=== PATIENT | male | born 1940 | race Caucasian/White ===

== ENCOUNTER 2022-07-02 06:13 | Day surgery (SDC) | payer OTHER ==
[2022-06-27 12:43] VITALS: BMI 24.7
[2022-07-02] MEDS ORDERED: ERYTHROMYCIN 0.5% OPHTHALMIC OINTMENT 3.5 GM TUBE ONE (07:06)
[2022-07-02] MEDS ORDERED: POVIDONE-IODINE 5% OPHTHALMIC PREP 30 ML SOLUTION ONE (07:06)
[2022-07-02] MEDS ORDERED: TETRACAINE 0.5% OPHTH SOLN 2 ML BOTTLE ONE (07:06)
[2022-07-02] MEDS ORDERED: BACITRACIN ZINC 15 GM TUBE TOPICAL OINTMENT ONE (07:06)
[2022-07-02] MEDS ORDERED: OXYMETAZOLINE 0.05% NASAL SOLUTION 15 ML BOTTLE NS ONE (07:06)
[2022-07-02] MEDS ORDERED: LIDOCAINE 1%-EPI 1:100,000 30 ML MDV IJ ONE (07:06)
[2022-07-02] MEDS ORDERED: BUPIVACAINE HCL 50 ML ONE (07:06)
[2022-07-02] MEDS ORDERED: THROMBIN (BOVINE) 5,000 UNIT VIAL TP ONE (07:07)
[2022-07-02] MEDS ORDERED: ceFAZolin SODIUM 1 GM VIAL ONE ×2 (07:11→07:14)
[2022-07-02] MEDS ORDERED: PROPOFOL 20 ML ONE (07:14)
[2022-07-02] MEDS ORDERED: MIDAZOLAM HCL 2 MG/2 ML SINGLE DOSE VIAL ONE (07:14)
[2022-07-02] MEDS ORDERED: LIDOCAINE HCL/PF 2% SDV 5ML VIAL ONE (07:21)
[2022-07-02] MEDS ORDERED: ePHEDrine SULFATE 50 MG/1 ML AMPULE ONE (08:50)
[2022-07-02] MEDS ORDERED: ONDANSETRON 4 MG/2 ML VIAL ONE ×2 (08:57→09:48)
[2022-07-02] MEDS ORDERED: DEXAMETHASONE SOD PHOSPHATE 4 MG/1 ML VIAL ONE (08:57)
[2022-07-02] MEDS ORDERED: ONDANSETRON 4 MG/2 ML VIAL IVPUSH PRN (09:29)
[2022-07-02] MEDS ORDERED: LACTATED RINGERS SOLUTION 1,000 ML IV SCH (09:30)
[2022-07-02] MEDS ORDERED: FENTANYL CITRATE/PF 50 MCG/ML VIAL ONE (09:48)
[2022-07-02 16:18] VITALS: TEMP 97.9
[2022-07-02 16:43] VITALS: BP 136/72; PULSE 63; RESP 17
== END 2022-07-02 12:30 | disposition home or self-care (01) ==
LOC: FASU 06:13
PROVIDERS: ATTEND Ophthalmology
PROC: 081Y0Z3 Bypass Left Lacrimal Duct to Nasal Cavity, Open Approach (ICD-10-PCS; 2022-07-02)
PROC: 08BR0ZZ Excision of Left Lower Eyelid, Open Approach (ICD-10-PCS; principal; 2022-07-02 08:48)
DX: H04.132 Lacrimal cyst, left lacrimal gland (principal); H04.331 Acute lacrimal canaliculitis of right lacrimal passage
CPT/HCPCS: 87070; 87205; 88304-TC; 94760